=== PATIENT | female | born 1935 | race Caucasian/White ===

== ENCOUNTER 2016-09-09 11:02 | Emergency (ER) | payer MEDICARE ==
--- NOTE | 2016-09-09 11:32 | ED ---
Upper Extremity Pain - HPI Summary HPI Summary: 80 female presents from [facility] urgent care with a diagnosed left humerous shaft fracture after sustaining fall at her home. she tripped over a stroller in a hallway landing into it and on her left arm. Admits to possibly bumping her head on the wall but denies LOC and head pain. Patient denies any other pain, including neck and back. Patient has not been given any pain medication. She states the pain a 9/10 worse with movement. Patient had a temporary splint and sling placed while at urgent care. Was sent here to rule out urgent surgery. Denies chest pain, abdominal pain and SOB. Denies numbness and tingling. 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 - daughter Mechanism Of Injury: Fall From A Standing Position Onset/Duration: Started Hours Ago, Traumatic, Still Present, Worse Since Timing: Constant Severity Initially: Moderate Severity Currently: Moderate Pain Location: Arm - left upper arm Character: Aching, Throbbing Aggravating Factor(s): Movement Alleviating Factor(s): Nothing, Rest Associated Signs & Symptoms: Positive: Swelling Related History: Dominant Hand Right - Allergies/Home Medications Allergies/Adverse Reactions: Allergies Allergy/AdvReac Type Severity Reaction Status Date / Time LESLIE Inhibitors Allergy Mild FACIAL Verified 12/18/14 17:30 SWELLING Indomethacin [From Indocin] Allergy Mild FACIAL Verified 12/18/14 17:30 SWELLING PMH/Surg Hx/FS Hx/Imm Hx Endocrine/Hematology History: Reports: Hx Thyroid Disease - HYPOTHYROID Cardiovascular History: Reports: Hx Hypertension - HIGH BLOOD PRESSURE Respiratory History: Reports: Other Respiratory Problems/Disorders - STATES CHEST CONGESTION AT NIGHT SOMETIMES GI History: Reports: Hx Irritable Bowel - ON MEDICATION FOR, Other GI Disorders - FATTY LIVER Sensory History: Reports: Hx Cataracts, Hx Contacts or Glasses - GLASSES, Hx Glaucoma - BILATERAL Denies: Hx Hearing Aid Opthamlomology History: Reports: Hx Cataracts, Hx Contacts or Glasses - GLASSES , Hx Glaucoma - BILATERAL - Cancer History Hx Chemotherapy: No Hx Radiation Therapy: No - Surgical History Surgery Procedure, Year, and Place: CATARACTS REMOVED FROM BOTH EYES. 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 Hx Anesthesia Reactions: No - Immunization History Immunizations Up to Date: Yes Infectious Disease History: No Infectious Disease History: Denies: Traveled Outside the [place] in Last 30 Days - Family History Known Family History: Positive: Cardiac Disease - Social History Alcohol Use: None Substance Use Type: Reports: None Smoking Status (MU): Former Smoker Review of Systems Constitutional: Negative Cardiovascular: Negative Respiratory: Negative Gastrointestinal: Negative Positive: Arthralgia, Myalgia, Decreased ROM, Edema - left upper arm Skin: Negative Neurological: Negative All Other Systems Reviewed And Are Negative: Yes Physical Exam Triage Information Reviewed: Yes Vital Signs On Initial Exam: Initial Vitals Temp Pulse Resp BP Pulse Ox 97.1 F 76 20 158/45 100 09/09/16 11:06 09/09/16 11:06 09/09/16 11:06 09/09/16 11:06 09/09/16 11:06 BP elevated patient is medicated for HTN. Also is in severe pain. monitored while in ED Vital Signs Reviewed: Yes Appearance: Positive: Well-Appearing, No Pain Distress, Well-Nourished Skin: Positive: Warm, Skin Color Reflects Adequate Perfusion - <2 sec cap refill b/l, Dry, Other - no ecchymosis or lacerations noted. no tenting of skin noted, no open fracture. Negative: Numb, Cyanosis @ Head/Face: Positive: Normal Head/Face Inspection - without racoon eyes, battles signs and facial bone trauma. no hematomas Eyes: Positive: Normal, EOMI, KENDALL, Conjunctiva Clear ENT: Positive: Normal ENT inspection, Hearing grossly normal, Pharynx normal Dental: Negative: Percussion Tenderness @, Cervical Lymphadenopathy Neck: Positive: Supple, Nontender Respiratory/Lung Sounds: Positive: Clear to Auscultation, Breath Sounds Present. Negative: Rales, Rhonchi, Wheezes Cardiovascular: Positive: Normal, RRR, Pulses are Symmetrical in both Upper and Lower Extremities - 2+ radial pulses, able to assess once temporary splint from UC removed Abdomen Description: Positive: Nontender, Soft Bowel Sounds: Positive: Present Musculoskeletal: Positive: Limited @ - entire left arm, unable to move due to pain in proximal, humeral shaft, Interruption @ - crepitus noted of left arm, step off, obivous deformity., Pain @ - left arm, Edema Left - proximal left arm withou ecchymosis Neurological: Positive: Normal, Sensory/Motor Intact - sensation intact. CMS of entire left arm intact both before and after splint application, Alert, Oriented to Person Place, Time, CN Intact II-III, Reflexes Intact - left arm reflexes not assessed, NV Bundle Intact Distally, Normal Gait Procedures - Splinting Location: left arm Hand-Made Type: plaster Splint: posterior long arm splint, and sling Pre-Proc Neuro Vasc Exam: normal Post-Proc Neuro Vasc Exam: normal, unchanged from pre-exam Diagnostics - Vital Signs Vital Signs Temp Pulse Resp BP Pulse Ox 09/09/16 11:08 97.1 F 85 20 158/45 100 09/09/16 11:06 97.1 F 76 20 158/45 100 - Laboratory Lab Statement: Any lab studies that have been ordered have been reviewed, and results considered in the medical decision making process. Course/Dx - Course Course Of Treatment: no new radiology images were obtained due to [facility] sending over all x-rays of entire left arm and shoulder. positive for angulated and displaced mid shaft fracture of left humerous. Patient was in ED for a long period trying to obtain pain control. Temproary splint applied at was removed and new posterios long arm splint was applied, without complication, neuro intact. Patient wsas much more comfortable in new splint and sling was applied. Given morphine, zofran and norco while in ED. Aware of side effects of medications. Discussed treatment plant with oli Frias. Patient and family agree with current plan. Educated on worsening signs and symptoms to watch out for and to return if occur. Also discussed possibility of staying for pain control and help with daily activities of living however patient had and family and wanted to go home. Was completely capable mentally and physically. Sent home with pain management. - Diagnoses Differential Diagnosis/HQI/PQRI: Positive: Contusion, Fracture (Open), Fracture (Closed), Strain, Sprain Provider Diagnoses: Displaced fracture of left humerus - Physician Notifications Discussed Care Of Patient With: Leon Frias Time Discussed With Above Provider: 12:45 Instructed by Provider To: Have Pt Call For Appt. Discharge - Discharge Plan Condition: Stable Disposition: HOME Prescriptions: HYDROcodone/ACETAMIN 5-325 MG* [[place] 5-325 TAB*] 1 tab PO Q6H PRN #20 tab MDD 2 PRN Reason: Pain Patient Education Materials: Arm Fracture in Adults (ED) Referrals: Vero Munson MD [Medical Doctor] - Bebe Xiao MD [Primary Care Provider] - Additional Instructions: Take prescribed pain medication as directed to help with pain. You may also take ibuprofen in between doses to help with pain and inflammation. If your pain becomes intolerable or new symptoms develop please return to ED. Make an appointment to see Dr Munson's orthopedic office by Monday09/12/16. Ice your arm and rest. Do not get splint wet.
[2016-09-09] MEDS ORDERED: Morphine INJ* 2 MG/ML 1 ML SYRINGE IV ONE ×2 (11:49→13:03)
[2016-09-09] MEDS ORDERED: Ondansetron INJ* 2 MG/ML VIAL IV ONE (13:03)
[2016-09-09] MEDS ORDERED: HYDROcodone/ACETAMIN 5-325 MG* 1 TAB PO ONE (16:04)
[2016-09-09 16:28] VITALS: BP 134/50
== END 2016-09-09 16:26 | disposition home or self-care (01) ==
LOC: ED 11:02
DX: S42.302A Unspecified fracture of shaft of humerus, left arm, initial encounter for closed fracture (principal); W18.09XA Striking against other object with subsequent fall, initial encounter; Y92.009 Unspecified place in unspecified non-institutional (private) residence as the place of occurrence of the external cause; I10 Essential (primary) hypertension; E03.9 Hypothyroidism, unspecified; K58.9 Irritable bowel syndrome, unspecified; Z87.891 Personal history of nicotine dependence
CPT/HCPCS: 29105; 99283; J2270; J2405

== ENCOUNTER 2017-03-31 11:02 | Emergency (ER) | payer MEDICARE ==
--- NOTE | 2017-03-31 13:10 | UC ---
Knee Pain HPI - HPI Summary HPI Summary: 1 WEEK OF RIGHT KNEE PAIN AND DIFFICULTY AMBULATING. A FEW DAYS PRIOR TO ONSET OF SX SHE WHACKED HER KNEE ON THE WALL WHEN GETTING OUT OF THE SHOWER. NO PREVIOUS KNEE INJURY OR SURGERY. - History of Current Complaint Chief Complaint: UCLowerExtremity Stated Complaint: KNEE PAIN Time Seen by Provider: 03/31/17 13:00 Hx Obtained From: Patient Onset/Duration: Gradual Onset, Lasting Days, Still Present Severity Initially: Moderate Severity Currently: Moderate Pain Intensity: 10 - 10/10 WITH PALPATION AND CERTAIN MOVEMENTS Pain Scale Used: 0-10 Numeric Character: Sharp, Aching Aggravating Factor(s): Movement, Weight Bearing Alleviating Factor(s): Rest Associated Signs And Symptoms: Positive: Swelling. Negative: Redness, Bruising , Fever, Weakness, Numbness, Tingling Able to Bear Weight: Yes - WITH PAIN - Allergies/Home Medications Allergies/Adverse Reactions: Allergies Allergy/AdvReac Type Severity Reaction Status Date / Time LESLIE Inhibitors Allergy Mild FACIAL Verified 03/31/17 11:07 SWELLING Indomethacin [From Indocin] Allergy Mild FACIAL Verified 03/31/17 11:07 SWELLING PMH/Surg Hx/FS Hx/Imm Hx Endocrine History: Hypothyroidism Cardiovascular History: Hypertension - Surgical History Surgical History: Yes Surgery Procedure, Year, and Place: CATARACTS REMOVED FROM BOTH EYES. CHOLECYSTECTOMY, BAREKR NEUROMA REMOVED FROM BOTTOM OF FOOT. - Family History Known Family History: Positive: Hypertension - Social History Alcohol Use: None Substance Use Type: None Smoking Status (MU): Former Smoker Review of Systems Constitutional: Negative Skin: Negative Respiratory: Negative Cardiovascular: Negative Gastrointestinal: Negative Musculoskeletal: Arthralgia, Decreased ROM, Edema All Other Systems Reviewed And Are Negative: Yes Physical Exam Triage Information Reviewed: Yes Appearance: Well-Appearing, No Pain Distress, Well-Nourished Vital Signs: Initial Vital Signs Temp 96.6 F 03/31/17 11:10 Pulse 79 03/31/17 11:10 Resp 16 03/31/17 11:10 BP 135/54 03/31/17 11:10 Pulse Ox 100 03/31/17 11:10 Vital Signs Reviewed: Yes Eyes: Positive: Conjunctiva Clear ENT: Positive: Hearing grossly normal Neck: Positive: Supple Respiratory: Positive: No respiratory distress, No accessory muscle use Cardiovascular: Positive: Pulses Normal Abdomen Description: Positive: Soft Musculoskeletal: Positive: ROM Limited @ - RIGHT KNEE FLEXION, Edema @ - RIGHT KNEE, Other: - RIGHT KNEE: POSITIVE MEDIAL JOINT LINE TENDERNESS. NO TENDERNESS OVER ANY BONY PROMINENCES. PAIN MEDIALLY WITH VALGUS STRESS TESTING. NEG LACHMANS. NEG DRAWERS SIGNS. NEG MCMURRAYS. POS PATELLAR APPREHENSION TEST. NO TENDERNESS OVER PATELLAR LIGAMENT OR QUADRICEPS TENDON. DECREASED ROM (FLEXION). Neurological: Positive: Alert Psychological: Positive: Age Appropriate Behavior Skin: Negative: rashes Diagnostics - Radiology RIGHT KNEE XRAY Xray Interpretation: Positive (See Comments) - Chondrocalcinosis at the medial and lateral menisci which while nonspecific is most commonly seen with calcium pyrophosphate dehydrate deposition disease. No additional radiographic abnormality of the knee. 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 - Physician Notifications Discussed Patient Care With: Ashu Serrano - ADVISED NAPROXEN BID AND ORTHO F /U EARLY NEXT WEEK Time Discussed With Above Provider: 14:35 Discharge - Discharge Plan Condition: Stable Disposition: HOME Prescriptions: Naproxen [Naproxen EC] 500 mg PO BID PRN #15 tab PRN Reason: Pain Patient Education Materials: Pseudogout (ED) Referrals: Rashawn Barragan MD [Medical Doctor] - (CALL TODAY FOR AN APPT EARLY NEXT WEEK ) Bebe Xiao MD [Primary Care Provider] - If Needed Additional Instructions: CALCIUM PYROPHOSPHATE DIHYDRATE DEPOSITION Joint problems caused by crystals of a calcium salt called pyrophosphate may be one of the most misunderstood forms of arthritis. Joint problems seen with these crystals often are mistaken for gout and other conditions. Proper diagnosis (detection) is important. Untreated calcium pyrophosphate deposition ( CPPD) may lead to severe, painful attacks or chronic (long-term) pain and inflammation. Over time, joints may degenerate, or break down, resulting in long -term disability. Some treatment options for the arthritis pain do exist, but these do not treat the underlying crystal deposits. Some of the underlying causes are treatable and should be evaluated in people with CPPD. CPPD is a type of arthritis that, as the old name of pseudogout suggests, can cause symptoms similar to gout. Yet, in CPPD, a different type of crystal, called calcium pyrophosphate, triggers the reaction. CPPD can cause bouts of severe pain and swelling in one or more joints, which can limit activity for days or weeks. It also can cause a more lasting arthritis that mimics osteoarthritis or rheumatoid arthritis.The condition most often involves the knees, but can affect wrists, shoulders, ankles, elbows, hands or other joints. Crystals deposit in the cartilage (the tissue that cushions inside joints) and can damage the cartilage. The crystals also can cause inflammation that leads to joint pain, warmth and swelling. In most cases, it is not clear why the crystals form, although crystal deposits clearly increase with age. Because the condition sometimes runs in families, genes likely play a role. Experts do not know how to prevent these crystals. If CPPD is due to some other medical problem, treatment of that condition may sometimes prevent CPPD from getting worse. Other factors that can contribute to CPPD include: - Excess iron storage (medical term: hemochromatosis) - Low magnesium levels in the blood (hypomagnesemia) - An overactive parathyroid gland (hyperparathyroidism) - Some causes of excess calcium in the blood (hypercalcemia) - A severely underactive thyroid (hypothyroidism)
[2017-03-31 13:42] VITALS: BP 146/62
--- NOTE | 2017-03-31 13:53 | RAD ---
Indication: Chronic RIGHT knee pain. Comparison: No relevant prior exams available on the [facility] PACS for comparison. Technique: RIGHT knee: AP, tunnel, lateral, sunrise views. Report: Negative for effusion, fracture, or malalignment. Negative for osteophytosis or significant joint space narrowing. Chondrocalcinosis at the medial and lateral menisci. Unremarkable soft tissue contours. IMPRESSION: Chondrocalcinosis at the medial and lateral menisci which while nonspecific is most commonly seen with calcium pyrophosphate dehydrate deposition disease. No additional radiographic abnormality of the knee.
== END 2017-03-31 14:58 | disposition home or self-care (01) ==
LOC: UCEAST 11:02
DX: M11.861 Other specified crystal arthropathies, right knee (principal); E03.9 Hypothyroidism, unspecified; I10 Essential (primary) hypertension; Z87.891 Personal history of nicotine dependence
CPT/HCPCS: 99212; G0463

== ENCOUNTER 2022-06-11 11:17 | Inpatient (IN) ==
[2022-06-11 12:54] LABS: ABS Eosinophils 0.1 10^3/ul (0-0.6); ABS Lymphocytes 0.3 10^3/ul (1.0-4.8); ABS Monocytes 0.6 10^3/ul (0-0.8); ABS Neutrophils 6.6 10^3/ul (1.5-7.7); Hematocrit 39 % (35-47); Hemoglobin 12.6 g/dL (12.0-16.0); Lymphocyte % 3.4 %; Mean Corpuscular HGB Conc 32 g/dL (31-36); Mean Corpuscular Hemoglobin 29 pg (27-31); Mean Corpuscular Volume 91 fL (80-97); Mean Platelet Volume 9.3 fL (7.4-10.4); Platelet Count 186 10^3/uL (150-450); Red Blood Count 4.32 10^6 /uL (3.70-4.87); Red Cell Distribution Width 17 % (10-15); White Blood Count 7.5 10^3/uL (3.5-10.8)
[2022-06-11 13:39] LABS: Albumin 3.2 g/dL (3.2-5.2); Calcium 9.3 mg/dL (8.6-10.3); Creatinine, Serum 1.6 mg/dL (0.51-0.95); Globulin 3.6 g/dL (2-4); Magnesium 1.8 mg/dL (1.9-2.7); Total Protein 6.8 g/dL (6.4-8.9); eGFR CKD-EPI 31.6 (>60)
[2022-06-11 13:40] LABS: Albumin/Globulin Ratio 0.9 (1-3); Total Bilirubin 1.5 mg/dL (0.2-1.0)
[2022-06-11 14:07] LABS: High Sensitivity Troponin 1 Hr 94 pg/mL (<15)
[2022-06-11 14:33] LABS: Potassium 4.6 mmol/L (3.5-5.0)
[2022-06-11] MEDS ORDERED: Furosemide 20 mg/2 ml IV VIAL IV SLOW PU ONE (14:58)
[2022-06-11 16:08] LABS: C Reactive Protein 5.88 mg/L (<8.01)
[2022-06-11] MEDS ORDERED: Albuterol HFA INHALER 8 gm MDI INH PRN (16:14)
[2022-06-11 17:41] LABS: Activated Partial Thrombo Time 33.8 seconds (26.0-38.0); INR 1.29 (0.88-1.18)
[2022-06-11 19:29] LABS: Body Fluid Appearance Cloudy; Body Fluid Color Yellow; Body Fluid Source Peritonial Fluid
[2022-06-11 19:34] LABS: Body Fluid WBC 359 /mcL
[2022-06-11 20:19] LABS: Body Fluid Mono 76 %; Body Fluid Other Cells 40; Body Fluid Total Cells Counted 200
[2022-06-11] MEDS: Heparin 5000 UNITS/ML 1 mL VIAL SUBCUT SCH (21:11)
[2022-06-11] MEDS: CMCS: Cyclosporine 0.05% OPHTH (NF) 0.4 ML VIAL BOTH EYES SCH (21:12)
[2022-06-12] MEDS: Heparin 5000 UNITS/ML 1 mL VIAL SUBCUT SCH ×3 (05:31→21:39)
[2022-06-12 07:30] LABS: ABS Eosinophils 0.1 10^3/ul (0-0.6); ABS Lymphocytes 0.3 10^3/ul (1.0-4.8); ABS Monocytes 0.6 10^3/ul (0-0.8); Eosinophil % 1.6 %; Hematocrit 39 % (35-47); Hemoglobin 12.4 g/dL (12.0-16.0); Lymphocyte % 4.8 %; Mean Corpuscular HGB Conc 32 g/dL (31-36); Mean Corpuscular Hemoglobin 30 pg (27-31); Mean Corpuscular Volume 92 fL (80-97); Mean Platelet Volume 8.7 fL (7.4-10.4); Platelet Count 156 10^3/uL (150-450); Red Blood Count 4.21 10^6 /uL (3.70-4.87); Red Cell Distribution Width 17 % (10-15)
[2022-06-12 07:44] LABS: Albumin 3.1 g/dL (3.2-5.2); Albumin/Globulin Ratio 0.9 (1-3); Calcium 9.1 mg/dL (8.6-10.3); Creatinine, Serum 1.72 mg/dL (0.51-0.95); Globulin 3.4 g/dL (2-4); Total Bilirubin 1.3 mg/dL (0.2-1.0); Total Protein 6.5 g/dL (6.4-8.9)
[2022-06-12 07:45] LABS: Potassium 5.4 mmol/L (3.5-5.0)
[2022-06-12] MEDS ORDERED: SODIUM ZIRCONIUM CYCLOSILICATE 10 GM PACKET PO ONE (08:30)
[2022-06-12] MEDS: Aspirin EC 81 mg TAB.EC (enteric coated) PO SCH (10:12)
[2022-06-12] MEDS: Multivitamins/Minerals TAB PO SCH (10:13)
[2022-06-12] MEDS: Calcium/Vitamin D TAB 250/125 TAB PO SCH (10:13)
[2022-06-12] MEDS: Cholecalciferol (VIT D3) 1,000 unit TAB PO SCH (10:13)
[2022-06-12] MEDS: CMCS: Cyclosporine 0.05% OPHTH (NF) 0.4 ML VIAL BOTH EYES SCH ×2 (10:13→21:43)
[2022-06-12] MEDS: CMCS: LoraTADine 10 mg TAB (NF) PO SCH ×2 (10:13→12:22)
[2022-06-12 16:53] LABS: Calcium 9.1 mg/dL (8.6-10.3); Creatinine, Serum 1.82 mg/dL (0.51-0.95); eGFR CKD-EPI 27.1 (>60)
[2022-06-13] MEDS: Heparin 5000 UNITS/ML 1 mL VIAL SUBCUT SCH ×3 (05:57→21:08)
[2022-06-13] MEDS: Aspirin EC 81 mg TAB.EC (enteric coated) PO SCH (09:03)
[2022-06-13] MEDS: Calcium/Vitamin D TAB 250/125 TAB PO SCH (09:03)
[2022-06-13] MEDS: Cholecalciferol (VIT D3) 1,000 unit TAB PO SCH (09:03)
[2022-06-13] MEDS: Multivitamins/Minerals TAB PO SCH (09:04)
[2022-06-13] MEDS: CMCS: Cyclosporine 0.05% OPHTH (NF) 0.4 ML VIAL BOTH EYES SCH ×2 (09:04→21:08)
[2022-06-13] MEDS: CMCS: LoraTADine 10 mg TAB (NF) PO SCH (09:05)
[2022-06-13 10:06] LABS: Creatinine, Serum 1.72 mg/dL (0.51-0.95); Potassium 4.6 mmol/L (3.5-5.0)
[2022-06-13] MEDS ORDERED: Albumin Human 25% 12.5 GM/50 ML BTL IV ONE (18:00)
[2022-06-13] MEDS ORDERED: Benzocaine (plain) Lozenge 15 MG MT PRN (18:02)
[2022-06-13] MEDS ORDERED: Lactulose 30 ml UDC PO ONE (18:10)
[2022-06-14] MEDS: Heparin 5000 UNITS/ML 1 mL VIAL SUBCUT SCH (05:27)
[2022-06-14 07:17] LABS: Hematocrit 36 % (35-47); Hemoglobin 11.7 g/dL (12.0-16.0); Mean Corpuscular HGB Conc 32 g/dL (31-36); Mean Corpuscular Hemoglobin 30 pg (27-31); Mean Corpuscular Volume 92 fL (80-97); Platelet Count 126 10^3/uL (150-450); Red Blood Count 3.96 10^6 /uL (3.70-4.87); Red Cell Distribution Width 17 % (10-15); White Blood Count 5.7 10^3/uL (3.5-10.8)
[2022-06-14 07:32] LABS: Calcium 8.9 mg/dL (8.6-10.3); Creatinine, Serum 1.59 mg/dL (0.51-0.95); Potassium 4.2 mmol/L (3.5-5.0); eGFR CKD-EPI 31.8 (>60)
[2022-06-14] MEDS: CMCS: LoraTADine 10 mg TAB (NF) PO SCH (10:09)
[2022-06-14] MEDS: Cholecalciferol (VIT D3) 1,000 unit TAB PO SCH (10:11)
[2022-06-14] MEDS: Multivitamins/Minerals TAB PO SCH (10:11)
[2022-06-14] MEDS: Calcium/Vitamin D TAB 250/125 TAB PO SCH (10:11)
[2022-06-14] MEDS: Aspirin EC 81 mg TAB.EC (enteric coated) PO SCH (10:11)
[2022-06-14] MEDS: CMCS: Cyclosporine 0.05% OPHTH (NF) 0.4 ML VIAL BOTH EYES SCH (10:13)
[2022-06-14 13:29] VITALS: BP 121/55
[2022-06-14 15:01] LABS: Albumin, BF 0.3 g/dL; Fluid Type, Albumin PERITONEAL; Fluid Type, Protein, Total PERITONEAL
[2022-06-15 12:19] LABS: Albumin, BF 1.1 g/dL; Fluid Type, Albumin PLEURAL; Fluid Type, Protein, Total PLEURAL; Lactate Dehydrogenase, BF 68 U/L; Total Protein, BF 1.9 g/dL
== END 2022-06-14 15:35 | disposition home or self-care (01) | DRG 947 ==
LOC: EDHOLD 11:17 → ED 11:17 → SUATTDRO 14:54 → EDHOLD 16:21 → MED 17:09 → SUATTDRO 06-13 14:39
PROVIDERS: ADMIT Internal Medicine; ATTEND Internal Medicine